=== PATIENT | male | born 1980 | race Caucasian/White ===

== ENCOUNTER 2020-05-03 09:24 | Emergency (ER) | payer OTHER ==
[2020-05-03 09:32] VITALS: BMI 22.5
[2020-05-03 09:59] LABS: BASO % 0.6 % (0-2.0); EOS % 4.1 % (0-4.5); HEMATOCRIT 43.7 % (35.4-49); HEMOGLOBIN 14.9 GM/dL (11.7-16.9); LYMPH % 35.7 % (8-40); MCH 28.7 pg (25.7-33.7); MEAN CELL VOLUME 84.4 fl (80-96); MEAN PLT VOLUME 10.1 fl (7.5-11.1); MONO % 7.6 % (3.8-10.2); PLATELET COUNT 99 K/MM3 (134-434); RBC 5.18 M/mm3 (4.00-5.60); RDW 12.9 % (11.9-15.9); WHITE BLOOD COUNT 4.3 K/mm3 (4.0-10.0)
[2020-05-03] MEDS ORDERED: SODIUM CHLORIDE 1,000 ML IV STA (10:13)
[2020-05-03 10:16] LABS: POTASSIUM 4.3 mmol/L (3.5-5.1)
[2020-05-03 10:18] LABS: ALBUMIN 4.1 g/dl (3.4-5.0); CALCIUM 9.1 mg/dL (8.5-10.1)
[2020-05-03 10:19] LABS: BLOOD UREA NITROGEN 19.1 mg/dL (7-18)
[2020-05-03 10:22] LABS: CREATININE 1.1 mg/dL (0.55-1.3)
[2020-05-03 10:24] LABS: BILIRUBIN,TOTAL 0.4 mg/dL (0.2-1); TOT PROT 7.2 g/dl (6.4-8.2)
[2020-05-03 10:57] LABS: PH,URINE 5.5 (5.0-8.0); URINE APPEARANCE CLEAR; URINE BILIRUBIN NEGATIVE (NEGATIVE); URINE COLOR YELLOW; URINE GLUCOSE (UA) NEGATIVE (NEGATIVE); URINE KETONE NEGATIVE (NEGATIVE); URINE LEUK ESTERASE NEGATIVE (NEGATIVE); URINE NITRITE NEGATIVE (NEGATIVE); URINE PROTEIN NEGATIVE (NEGATIVE); URINE UROBILINOGEN 0.2 mg/dL (0.2-1.0)
[2020-05-03] MEDS ORDERED: FAMOTIDINE 10 MG TABLET PO ONE (13:02)
[2020-05-03] MEDS ORDERED: FAMOTIDINE 20 MG TABLET ONE (13:04)
[2020-05-03 14:46] VITALS: BP 110/72; PULSE 68; TEMP 98.1
== END 2020-05-03 13:45 | disposition home or self-care (01) ==
LOC: JER 09:24
PROC: 3E0337Z Introduction of Electrolytic and Water Balance Substance into Peripheral Vein, Percutaneous Approach (ICD-10-PCS; principal; 2020-05-03)
DX: R10.31 Right lower quadrant pain (principal)
CPT/HCPCS: 36415; 74176-TC; 80053; 81003; 83690; 85025; 99284-25